=== PATIENT | male | born 1975 | race Caucasian/White ===

== ENCOUNTER 2020-07-11 06:10 | Emergency (ER) | payer OTHER ==
[~2020-07-11] VITALS: Ht 190.5 cm; Wt 119.7 kg
[2020-07-11 06:13] VITALS: BP 154/96
[2020-07-11 06:44] VITALS: BP 154/96
== END 2020-07-11 06:44 | disposition home or self-care (01) ==
LOC: MED 06:10
DX: S61.411A Laceration without foreign body of right hand, initial encounter (principal); F17.200 Nicotine dependence, unspecified, uncomplicated; Z88.8 Allergy status to other drugs, medicaments and biological substances; W22.8XXA Striking against or struck by other objects, initial encounter; Y93.89 Activity, other specified; Y92.89 Other specified places as the place of occurrence of the external cause; Y99.8 Other external cause status
CPT/HCPCS: 12001; 73130; 99283; Q0092